=== PATIENT | female | born 2000 | race Caucasian/White ===

== ENCOUNTER 2023-05-22 05:51 | Observation (INO) | payer BC ==
[2023-05-22] MEDS ORDERED: Guaifenesin DM 100-10/5 ML UDCUP PO PRN (07:29)
[2023-05-22] MEDS ORDERED: Acetaminophen 325 MG TAB PO PRN (07:29)
[2023-05-22] MEDS ORDERED: Senokot S 8.6-50 MG TAB PO PRN (07:29)
[2023-05-22] MEDS ORDERED: Sodium Chloride 0.9% 1,000 ML IV SCH (08:00)
[2023-05-22 10:21] VITALS: BMI 19.1
[2023-05-22] MEDS ORDERED: Magnevist 469MG/ML 20 ML VIAL ONE (12:02)
[2023-05-22] MEDS ORDERED: levETIRAcetam 500 MG/5 ML VIAL SLOW IVP SCH (12:45)
[2023-05-22] MEDS: Dexamethasone 4 MG TAB PO SCH (20:03)
[2023-05-22] MEDS: levETIRAcetam 500 MG TAB PO SCH (20:04)
[2023-05-23 05:28] LABS: #Neutrophils 4.3 thou/uL (1.40-6.50); %Basophils 0.2 % (0.0-1.0); %Monocytes 0.8 % (0.0-4.0); %Neutrophils 85.6 % (31.0-61.0); Hematocrit 39.1 % (36.0-47.0); Hemoglobin 13.2 g/dL (12.0-16.0); Mean Corpuscular HGB CONC 33.8 g/dL (32.0-36.0); Mean Corpuscular Volume 94.7 fl (78.0-98.0); Mean Platelet Volume 10.1 fL (7.4-10.4); Platelet Count 261 10x3/uL (130-400); RBC Distribution Width 11.9 % (11.5-14.5); Red Blood Cell (RBC) Count 4.13 mill/uL (4.00-5.20)
[2023-05-23 05:48] LABS: Anion Gap 12 mmol/L (10-20); BUN (Urea Nitrogen) 8 mg/dL (7.0-18.7); Calc. Creatinine Clearance 98 mL/min (70-130); Calcium 9.5 mg/dL (7.8-10.44); Carbon Dioxide 21 mmol/L (22-29); Cardiac Risk 2.9 (Less than 4.5); Chloride 107 mmol/L (98-107); Cholesterol 149 mg/dl (< 200 Desired); Estimated GFR 125; Glucose 144 mg/dL (70-105); HDL Cholesterol 51 mg/dL (>60 Neg Risk); LDL Cholesterol, Calculated 91 mg/dL; Potassium 3.9 mmol/L (3.5-5.1); Sodium 136 mmol/L (136-145); Triglycerides 33 mg/dL (Less than 150)
[2023-05-23 08:08] VITALS: TEMP 97.8
[2023-05-23] MEDS: levETIRAcetam 500 MG TAB PO SCH (08:20)
[2023-05-23] MEDS: Dexamethasone 4 MG TAB PO SCH (08:20)
[2023-05-23 11:13] VITALS: BP 98/53
[2023-05-24] MEDS ORDERED: Dexamethasone 1 MG TAB PO SCH (21:00)
[2023-05-26] MEDS ORDERED: Dexamethasone 1 MG TAB PO SCH (21:00)
[2023-05-28] MEDS ORDERED: Dexamethasone 1 MG TAB PO SCH (21:00)
== END 2023-05-23 12:28 | disposition home or self-care (01) ==
LOC: 2SE 07:02
PROVIDERS: ADMIT Hospitalist; ATTEND Emergency Medicine
DX: G45.9 Transient cerebral ischemic attack, unspecified (principal); R06.4 Hyperventilation; G93.6 Cerebral edema; D49.7 Neoplasm of unspecified behavior of endocrine glands and other parts of nervous system; Z79.899 Other long term (current) drug therapy
CPT/HCPCS: 36415; 36416; 70553; 80048; 80061; 85025; 95816; 95819; 95957; 96374; A9579; G0378; J1953; J7050; J8540